=== PATIENT | female | born 1960 | race Caucasian/White ===

== ENCOUNTER 2020-05-27 21:14 | Emergency (ER) | payer OTHER, SELFPAY ==
--- NOTE | ~2020-05-27 | CT_ITS ---
EXAMINATION: CTA brain carotid DATE: 05/27/2020 22:10 CDT INDICATION: Vision loss. TECHNIQUE: Computed tomographic angiography (CTA) of the head was performed without and with 100 mL O mnipaque-350 intravenous contrast. CTA of the neck was performed with intravenous contrast. The dose- length product was 1495.45 mGy-cm. Maximum intensity projection and volume rendered 3D-reconstruction s were created by the technologist on a separate workstation. Automated exposure control and iterativ e reconstruction technique were employed. COMPARISON: None. FINDINGS: HEAD CTA: Normal brain parenchymal volume. No acute intracranial hemorrhage, infarction, mass or mass effect. There is intracranial atherosclerosis. Mild atherosclerotic change of the cavernous distal i nternal carotid arteries without significant stenosis. The A1 and M1 segments are widely patent. Basi lar artery is patent. The anterior, middle and posterior cerebral arteries are unremarkable without a neurysm or vascular malformation. Paranasal sinuses and mastoids are pneumatized. No depressed skull fractures. NECK CTA: Mild calcification of nondilated aortic arch without evidence for aneurysm or dissection. T race atherosclerotic plaque at the origin of the right subclavian artery with minimal stenosis less t balderrama 20%. The common and internal carotid arteries are widely patent. No significant plaque or stenosi s. Right vertebral artery is small with flow directed into the PICA distally. This is normal variant. Left vertebral artery is unremarkable. Mild cervical spondylosis. IMPRESSION: 1: No acute intracranial abnormality. 2: No significant vascular abnormality of the carotid arteries or intracranial circulation. Reviewed, dictated and finalized at location A.
--- NOTE | ~2020-05-27 | XR_ITS ---
EXAMINATION: XR chest 1V portable 05/27/2020 21:59 INDICATION: Vision loss right eye. History of hypertension. PROCEDURE: AP portable chest COMPARISON: No prior studies for comparison. FINDINGS: The lungs are clear. The cardiomediastinal silhouette is within normal limits. There are no pleural effusions. There is no pneumothorax suspected. IMPRESSION: 1: NO ACUTE CARDIOPULMONARY DISEASE. Reviewed, dictated and finalized at location A.
[2020-05-27 21:20] VITALS: BP 173/82; PULSE 93; RESP 18; TEMP 36.6; O2SAT 99
--- NOTE | 2020-05-27 21:25 | ECG_ITS ---
Measurements Intervals [place] Rate: 88 P: 81 LA: 125 QRS: 24 QRSD: 101 T: 47 QT: 384 QTc: 466 Interpretive Statements SINUS RHYTHM NORMAL ECG Electronically Signed On 05-28-2020 7:26:53 CDT by Riley Abdullahi D.O.
[2020-05-27 21:30] VITALS: PULSE 95; RESP 18
[2020-05-27 21:30] LABS: Glucose Point of Care 121 (65-105)
[2020-05-27 21:37] LABS: Basophils Absolute Auto 0.1 K/mm3 (0.0-0.1); Basophils Percent Auto 0.7 % (0.2-1.2); Eosinophils Absolute Auto 0.4 K/mm3 (0-0.3); Eosinophils Percent Auto 3.5 % (0-4.4); Hematocrit 40.5 % (37.0-47.0); Hemoglobin 13.8 g/dL (12.0-15.0); Immature Granulocyte Absolute 0.02 K/mm3 (0.00-0.031); Immature Granulocyte Percent A 0.2 % (0-0.5); Lymphocytes Absolute Auto 3.05 K/mm3 (0.9-3.2); Lymphocytes Percent Auto 30.9 % (18.3-44.2); Mean Corpuscular HGB Conc 34.1 g/dl (32-36); Mean Corpuscular Hemoglobin 32.8 pg (26-34); Mean Corpuscular Volume 96.2 fl (80-100); Mean Platelet Volume 10.8 fl (7.4-10.4); Monocytes Absolute Auto 1.2 K/mm3 (0.1-0.6); Monocytes Percent Auto 11.7 % (2.6-8.5); Neutrophils Absolute Auto 5.2 K/mm3 (1.3-6.7); Platelet Count Result 235 k/mm3 (150-375); Red Blood Count 4.21 M/mm3 (4.2-5.4); Red Cell Distribution Width 13.4 % (11.5-14.5); White Blood Count 9.9 K/mm3 (4.5-10.0)
[2020-05-27 21:46] LABS: INR 0.9; Prothrombin Time 12.2 Seconds (11.1-14.7)
[2020-05-27 21:49] LABS: Anion Gap 8 mmol/L (8-16); Blood Urea Nitrogen 25 mg/dL (7-17); Calcium 9.1 mg/dL (8.4-10.2); Carbon Dioxide 27 mmol/L (22-30); Chloride 103 mmol/L (98-107); Estimated CRCL calculation 50 ml/min; Estimated Glomerular Filt Rate 57; Glucose 107 mg/dL (65-105); Potassium 3.1 mmol/L (3.4-5.0); Sodium 138 mmol/L (137-145)
--- NOTE | 2020-05-27 21:59 | ED.NEUROSD ---
HPI - Neuro Symptoms/Deficit General Chief Complaint: Neuro Symptoms/Deficit Stated Complaint: neuro symptoms onset 1999 Time Seen by Provider: 05/27/20 21:59 History of Present Illness HPI Narrative: 59-year-old female presents to emergency department for right visual field deficits that started at 8 PM tonight. Patient states she walked outside, then walked back inside and noticed the vision changes. Patient states she has never had this in the past before. No history of strokes or TIAs in the past. Has not taken anything for her symptoms far. Patient does have a history of high blood pressure. No chest pain or shortness of breath. Related Data Home Medications Medication Instructions Recorded Confirmed atorvastatin 40 mg tablet 40 mg PO DAILY 08/05/19 03/02/20 calcium carbonate 500 mg calcium 500 mg PO DAILY 03/02/20 03/02/20 (1,250 mg) tablet multivitamin 1 tablet PO DAILY 03/02/20 03/02/20 Allergies Allergy/AdvReac Type Severity Reaction Status Date / Time codeine Allergy Unknown Unknown Verified 03/02/20 09:38 Review of Systems Review of Systems: Narrative: CONSTITUTIONAL: Denies fever, chills, or sweats. EYES: Denies visual changes, redness, or discharge. ENT: Denies rhinorrhea, congestion, sore throat, or otalgia. CARDIOVASCULAR: Denies chest pain, palpitations, or edema. RESPIRATORY: Denies cough or dyspnea. GASTROINTESTINAL: Denies abdominal pain, nausea, vomiting, or diarrhea. GENITOURINARY: Denies dysuria or hematuria. SKIN: Denies rash or itching. MUSCULOSKELETAL: Denies back pain, joint pain, or myalgia. NEUROLOGIC: Denies headache, numbness, dizziness, or weakness. 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 [facility] Social History Social History Smoking status: Heavy tobacco smoker Second hand tobacco smoke exposure: Yes Alcohol intake: never Exam Narrative: Exam Narrative: GENERAL: Well-appearing, well-nourished, and in no acute distress. HEAD: Normocephalic, atraumatic. EYES: PERRLA and EOMI. ENT: Nares clear, no rhinorrhea or epistaxis. Mucous membranes moist. NECK: Supple. CHEST: Clear to auscultation. No respiratory distress. HEART: Regular rate and rhythm. No murmur heard. Normal peripheral pulses. ABDOMEN: Soft, nontender, nondistended, normal active bowel sounds. EXTREMITIES: Normal range of motion. No edema. SKIN: Warm, dry, no rash. NEURO: NIH 2 PSYCH: Normal mood and affect. Course Consultations Consultation #1: [id number] - discussed case with Dr. Benitez, neuro intervention at [facility], ok to transfer [id number] - discussed case with Dr. Verdugo, at [facility] ER, accepts transfer. Vital Signs Vital signs: Vital Signs Temperature 36.6 C 05/27/20 21:20 Pulse Rate 93 05/27/20 21:20 Respiratory Rate 18 05/27/20 21:20 Blood Pressure 173/82 H 05/27/20 21:20 Pulse Oximetry 99 05/27/20 21:20 Temperature 36.6 C 05/27/20 21:20 Pulse Rate 83 05/27/20 22:24 Respiratory Rate 18 05/27/20 22:24 Blood Pressure 175/89 H 05/27/20 22:24 Pulse Oximetry 99 05/27/20 22:24 MDM - Neuro Symptoms/Deficit MDM Narrative Medical decision making narrative: Patient came into the emergency department with new to the top half of her right eye visual field. CT scan of head unremarkable. NIH 2. I discussed the risks and benefits of giving TPA to this patient. Patient declined. [facility] does not have ophthalmology coverage. This patient having changes to her visual field, patient will also need an ophthalmology consult in the near future likely. Patient transferred over to [facility] emergency department for further evaluation by neurology team. Medical Records Attestation: I reviewed the patient's medical records. Lab Data Attestation: I reviewed the patient's lab results. Result diagrams: 05/27/20 21:31 05/27/20 21:31 Labs: Lab Results 05/27/20 05/27/20 08
[2020-05-27 22:01] LABS: Troponin I < 0.012 ng/mL (0.000-0.034)
--- NOTE | 2020-05-27 22:15 | PC.NURSE ---
called lab to add on
[2020-05-27 22:24] VITALS: BP 175/89; PULSE 83; RESP 18; O2SAT 99
[2020-05-27 22:27] LABS: Alanine Aminotransferase 15 U/L (4-35); Albumin Level 3.9 g/dL (3.5-5.1); Alkaline Phosphatase 57 U/L (38-126); Aspartate Amino Transferase 23 U/L (14-36); Bilirubin,Total 0.4 mg/dL (0.2-1.3)
== END 2020-05-27 23:01 | disposition short-term general hospital (02) ==
PROVIDERS: Emergency Medicine Emergency Medical Services; Emergency Provider Emergency Medicine; PCP Family Medicine
DX: I63.9 Cerebral infarction, unspecified (principal); R29.702 NIHSS score 2; F17.210 Nicotine dependence, cigarettes, uncomplicated
CPT/HCPCS: 36415; 70496; 70498; 71045; 80048; 80076; 82948; 84484; 85025; 85610; 85730; 93005; 99285; Q9967

== ENCOUNTER → 2020-08-20 07:35 | Outpatient (CLI) | payer OTHER, SELFPAY ==
--- NOTE | ~2020-08-20 | MM_ITS ---
EXAMINATION: MM screening piero BI w hiram HISTORY: Screening mammogram TECHNIQUE: Craniocaudal and mediolateral oblique 3-D tomosynthesis images were obtained and synthetic 2-D images were generated. CAD analysis was submitted and interpreted. COMPARISON: No prior mammogram is available for comparison at this institution. BREAST PARENCHYMAL COMPOSITION: There are scattered areas of fibroglandular density. FINDINGS: There is no evidence of suspicious mass, calcification, or architectural distortion to sugg est malignancy in either breast. There has been no suspicious interval change. IMPRESSION: 1. No mammographic evidence of malignancy. 2. Recommend routine screening mammography in one year. BI-RADS Category 1: Negative Reviewed, dictated and finalized at location B. ICAL OPERATIONS LEADER
== END ==
PROVIDERS: PCP Family Medicine; Visit Provider Obstetrics & Gynecology Gynecology
DX: Z12.31 Encounter for screening mammogram for malignant neoplasm of breast (principal)
CPT/HCPCS: 77063; 77067

== ENCOUNTER → 2021-08-31 16:30 | Outpatient (CLI) | payer OTHER, SELFPAY ==
--- NOTE | ~2021-08-31 | MM_ITS ---
EXAMINATION: MM screening piero BI w hiram HISTORY: Screening mammogram TECHNIQUE: Craniocaudal and mediolateral oblique 3-D tomosynthesis images were obtained and synthetic 2-D images were generated. CAD analysis was submitted and interpreted. COMPARISON: 08/20/2020 bilateral screening mammogram BREAST PARENCHYMAL COMPOSITION: There are scattered areas of fibroglandular density. FINDINGS: There is a new asymmetric 3.5 x 7.8 mm opacity in the anterior outer mid right breast. Diag nostic right mammogram and targeted right breast ultrasound examination are recommended. Otherwise there is no evidence of suspicious mass, calcification, or architectural distortion to sugg est malignancy in either breast. There has been no other suspicious interval change. IMPRESSION: 1. New 3.5 x 7.8 mm opacity in the anterior outer mid right breast 2. Diagnostic right mammogram and targeted right breast ultrasound examination are recommended. BI-RADS Category 0: Incomplete: Needs additional imaging evaluation. Reviewed, dictated and finalized at location A. LINE MAINTENANCE SUPERVISOR
== END ==
PROVIDERS: Visit Provider Obstetrics & Gynecology Gynecology
DX: Z12.31 Encounter for screening mammogram for malignant neoplasm of breast (principal); R92.8 Other abnormal and inconclusive findings on diagnostic imaging of breast
CPT/HCPCS: 77063; 77067

== ENCOUNTER → 2021-09-17 07:57 | Outpatient (CLI) | payer OTHER, SELFPAY ==
--- NOTE | ~2021-09-17 | MMUS_ITS ---
EXAMINATION: MM diagnostic piero RT w hiram, US breast RT limited HISTORY: Follow-up right breast mass TECHNIQUE: Additional 3-D tomosynthesis images of the right breast were performed and synthetic 2-D i mages were generated. CAD analysis was submitted and interpreted. High resolution right breast ultras ound was performed. COMPARISON: None BREAST PARENCHYMAL COMPOSITION: Breast composed of scattered areas of fibroglandular density. FINDINGS: MAMMOGRAPHIC FINDINGS: There is a mass in the mid outer aspect of the right breast, anterior-mid depth. There are no suspici ous calcifications or architectural distortion. ULTRASOUND: Limited right breast ultrasound: At 9:00, 3 cm from the nipple there is a 3 mm cyst. At 9:00, 2 cm fr om the nipple there is a 5 mm cyst. At 9:00, 1 cm from the nipple there is a 2 mm cyst. The largest c yst corresponds to the mammographic finding. No suspicious masses to suggest malignancy. IMPRESSION: 1. No evidence for malignancy in the right breast. Benign findings. 2. Routine yearly screening mammogram and regular clinical breast examination are recommended. BI-RADS Category 2: Benign finding(s). Reviewed, dictated and finalized at location A. OYEE COMMUNICATIONS SPECIALIST IMPRESSION: 1. No evidence for malignancy in the right breast. Benign findings. 2. Routine yearly screening mammogram and regular clinical breast examination a re recommended. BI-RADS Category 2: Benign finding(s).
== END ==
PROVIDERS: PCP Family Medicine; Visit Provider Obstetrics & Gynecology Gynecology
DX: R92.8 Other abnormal and inconclusive findings on diagnostic imaging of breast (principal)
CPT/HCPCS: 76642; 77061; 77065; G0279

== ENCOUNTER 2021-11-12 09:51 | Outpatient (CLI) | payer OTHER, SELFPAY ==
--- NOTE | ~2021-11-12 | CT_ITS ---
EXAMINATION:CT lung screening DATE: 11/12/2021 10:15 INDICATION: Encounter for screening for malignant neoplasm of respiratory organs. Current smoker with 40 pack year history. TECHNIQUE: Computed tomography (CT) of the chest was performed without intravenous contrast. Automate d exposure control and iterative reconstruction technique were employed. The dose-length product (DLP ) was 68.81 mGy-cm. COMPARISON: CTA neck 05/27/2020 FINDINGS: There is a 4 mm nodule in right upper lobe. No pleural effusion. The heart size is normal. There are coronary artery calcifications. No pericardial effusion. There is a 1.9 cm cyst in the live r. There is a 4 mm stone in right kidney. There is mild thoracic spondylosis. IMPRESSION: 1. Lung-RADS category 2: Benign appearance or behavior. Continue annual screening with noncontrast lo w-dose chest CT in 12 months. Reviewed, dictated and finalized at location E. NICAL SYSTEMS ARCHITECT IMPRESSION: 1. Lung-RADS category 2: Benign appearance or behavior. Continue annual screeni ng with noncontrast low-dose chest CT in 12 months.
== END 2021-11-12 09:52 | disposition home or self-care (01) ==
PROVIDERS: PCP Family Medicine; Visit Provider Family Medicine
DX: Z12.2 Encounter for screening for malignant neoplasm of respiratory organs (principal); Z87.891 Personal history of nicotine dependence
CPT/HCPCS: 71271

== ENCOUNTER 2022-12-02 16:37 | Outpatient (CLI) | payer OTHER, SELFPAY ==
--- NOTE | ~2022-12-02 | CT_ITS ---
EXAMINATION: CT lung screening DATE: 12/02/2022 16:58 INDICATION: Personal history of nicotine dependence, current smoker with 41 pack year history TECHNIQUE: Computed tomography (CT) of the chest was performed without intravenous contrast. The dose -length product (DLP) was 92.63 mGy-cm. Automated exposure control and iterative reconstruction techn Cherrishue were employed. COMPARISON: 11/12/2021 FINDINGS: There is mild emphysema. There is a stable 4 mm nodule of the right upper lobe. No pleural effusion or pneumothorax. The lungs are free of acute opacities. No pathologically enlarged thoracic lymph nodes are identified. The heart size is normal. Calcified coronary artery atherosclerosis is no junior. There is mild thoracic spondylosis. There is a 1.8 cm cyst of the liver. A 4 mm nonobstructing s tone is noted in the right kidney. IMPRESSION: 1. Lung-RADS category 2: Benign appearance or behavior. Continue annual screening with noncontrast lo w-dose chest CT in 12 months. Reviewed, dictated and finalized at location F. UNTS PAYABLE TECHNICIAN IMPRESSION: 1. Lung-RADS category 2: Benign appearance or behavior. Continue annual screeni ng with noncontrast low-dose chest CT in 12 months.
== END 2022-12-02 16:38 | disposition home or self-care (01) ==
PROVIDERS: PCP Family Medicine; Visit Provider Family Medicine
DX: Z12.2 Encounter for screening for malignant neoplasm of respiratory organs (principal); F17.210 Nicotine dependence, cigarettes, uncomplicated
CPT/HCPCS: 71271

== ENCOUNTER → 2022-12-03 08:40 | Outpatient (CLI) | payer OTHER, SELFPAY ==
--- NOTE | ~2022-12-03 | MM_ITS ---
EXAMINATION: MM screening piero BI w hiram HISTORY: Screening mammogram TECHNIQUE: Craniocaudal and mediolateral oblique 3-D tomosynthesis images were obtained and synthetic 2-D images were generated. CAD analysis was submitted and interpreted. COMPARISON: 09/17/2021, 08/31/2021, 08/20/2020 BREAST PARENCHYMAL COMPOSITION: There are scattered areas of fibroglandular density. FINDINGS: There is a stable cyst in the outer right breast. No suspicious mass, calcification, or arc hitectural distortion are identified in either breast to suggest malignancy. There has been no suspic ious interval change. IMPRESSION: 1. No mammographic evidence of malignancy. 2. Recommend routine screening mammography in one year. BI-RADS Category 2: Benign finding(s). Reviewed, dictated and finalized at location A. GY CONSERVATION ENGINEER
== END ==
PROVIDERS: PCP Family Medicine; Visit Provider Obstetrics & Gynecology Gynecology
DX: Z12.31 Encounter for screening mammogram for malignant neoplasm of breast (principal)
CPT/HCPCS: 77063; 77067

== ENCOUNTER 2023-10-09 11:54 | Outpatient (CLI) | payer OTHER, SELFPAY ==
--- NOTE | ~2023-10-09 | XR_ITS ---
Right Hand Technique: PA, oblique, and lateral views were obtained. Clinical History: Pain Findings: No acute fracture or dislocation is seen. Osseous alignment is anatomic. Joint spaces are p reserved. Soft tissues are unremarkable. Impression: Unremarkable right hand. Reviewed, dictated and finalized at location M. RY MANAGER Impression: Unremarkable right hand.
== END 2023-10-09 11:55 | disposition home or self-care (01) ==
PROVIDERS: PCP Family Medicine; Visit Provider Family Medicine
DX: M79.641 Pain in right hand (principal); Z91.81 History of falling
CPT/HCPCS: 73130

== ENCOUNTER 2024-04-30 13:09 | Outpatient (CLI) | payer OTHER, SELFPAY ==
--- NOTE | ~2024-04-30 | MM_ITS ---
EXAMINATION: MM screening piero BI w hiram HISTORY: Screening TECHNIQUE: Craniocaudal and mediolateral oblique 3-D tomosynthesis images were obtained and synthetic 2-D images were generated. CAD analysis was submitted and interpreted. COMPARISON: Comparison to multiple prior studies sequentially, with oldest reviewed study dated 08/02. BREAST PARENCHYMAL COMPOSITION: Not dense: There are scattered areas of fibroglandular density. FINDINGS: There is no evidence of suspicious mass, calcification, or architectural distortion to sugg est malignancy in either breast. There has been no suspicious interval change. IMPRESSION: 1. No mammographic evidence of malignancy. 2. Recommend routine screening mammography in one year. BI-RADS Category 1: Negative. Reviewed, dictated and finalized at location B.
== END 2024-04-30 13:10 | disposition home or self-care (01) ==
PROVIDERS: PCP Family Medicine; Visit Provider Nurse Practitioner
DX: Z12.31 Encounter for screening mammogram for malignant neoplasm of breast (principal)
CPT/HCPCS: 77063; 77067

== ENCOUNTER 2024-12-10 14:12 | Outpatient (CLI) | payer OTHER, SELFPAY ==
--- NOTE | ~2024-12-10 | CT_ITS ---
CT Scan of the Chest without Contrast: Clinical Indication: Lung cancer screening, nicotine dependence Technique: Contiguous sections were acquired throughout the chest without intravenous contrast. Dose reduction technique was used on this scan by utilizing automated exposure control and iterative recon struction technique. The dose-length product (DLP) was 76.02 mGy-cm. COMPARISON: 12/02/2022 Findings: There is no evidence of any significant mediastinal, hilar or axillary lymphadenopathy. Coronary william ry calcifications present. There is no evidence of pleural or pericardial effusion. Stable 4 mm nodule in the central right lung apex (axial image 32). Images through the upper abdomen reveal no abnormalities. Impression: Lung RADS 2: Benign appearance. 12 month follow-up screening CT advised. Reviewed, dictated and finalized at location . Impression: Lung RADS 2: Benign appearance. 12 month follow-up screening CT advised.
--- OUTSIDE RECORDS SUMMARY | 2024-12-10 16:04 | XMS_ITS | Clinical Summary ---
Author Organization [facility] Care Team Providers Care Artificial Limb Maker Name Role Phone Unavailable Primary Care Provider Unavailabl e Social History Tobacco Use Types Packs/Day Years Used Date Smoking Tobacco: Never Assessed Comments Unknown Sex and Gender Information Value Date Recorded Sex Assigned at Not on file Legal Sex Female 9:43 AM CDT Gender Identity Not on file Sexual Orientation Not on file Plan of Treatment Health Maintenance Due Date Last Done Comments Hepatitis C Virus (HCV) Screening 1960 TdaP Immunization 1960 Pap Smear 1981 Cervical Cancer Screening (CCS) 1990 HPV/Cotest 1990 Colonoscopy 2005 Colorectal Cancer Screening 2005 Cologuard 2010 Immunochemical Fecal Occult Blood 2010 Mammogram 2010 Pneumococcal Immunization (5 0+ years) (1 of 1 - PCV) 2010 Zoster Immunization (1 of 2) 2010 Influenza Immunization (#1) 2024 SARS-COV-2 Immunization (2023- season) 2024 Respiratory Syncytial Virus (RSV) Immunization (Adult) (1 - 1-dose 75+ series) 2035 Hepatitis B Immunization Aged Out No longer eligible based on patient's age to complete this topic Meningococcal Immunization (ACWY) Aged Out No longer eligible based on patient's age to complete this topic Pneumococcal Immunization Combined Aged Out No longer eligible based on patient's age to complete this topic Rotavirus Immunization Aged Out No lo nger eligible based on patient's age to complete this topic
--- OUTSIDE RECORDS SUMMARY | 2024-12-10 16:04 | XMS_ITS | Clinical Summary ---
Author Organization [employer] [facility] Address [address] [place] [address] Care Team Providers Care Manager Library Name Role Phone Unavailable Primary Care Provider Unavailabl e Allergies Active Allergy Reactions Criticality Noted Date Comments Codeine Nausea and Vomiting Low 05/27/2020 Social History Tobacco Use Types Packs/Day Years Used Date Smoking Tobacco: Never Assessed Comments Unknown Sex and Gender Information Value Date Recorded Sex Assigned at Not on file Legal Sex Female 12:22 PM CDT Gender Identity Not on file Sexual Orientation Not on file Plan of Treatment Health Maintenance Due Date Last Done Comments DTAP/TDAP/TD VACCINES (1 - Tdap) 1979 CERVICAL CANCER SCREENING 1990 BREAST CANCER SCREENING 2000 COLORECTAL SCREENING 2005 Colorectal Cancer Screening 2005 FIT-DNA Q 3 years 2005 FIT/FOBT Q 1 year 2005 Flex Sig/CT Colonography Q 5 years 2005 ZOSTER VACCINE (1 of 2) 2010 INFLUENZA VACCINE (#1) 2024 RSV VACCINE (60+ or ) (1 - 1-dose 75+ series) 2035 PNEUMOCOCCAL VACCINE 0-49 YEARS Aged Out No longer eligible based on patient's age to complete this topic Insurance Orchestrate BENEFIT ADMIN Dipti
--- OUTSIDE RECORDS SUMMARY | 2024-12-10 16:04 | XMS_ITS | Encounter Summary ---
Author Organization [facility] Address [address] [place] [address] Care Team Providers Care Geophysical Engineer Name Role Phone Freddy Bolivar MD Primary Care Provider Encounter Details Date Type Department Care Team (Late st Contact Info) Description 05/28/2020 Ophth Exam [facility] [address] [place] [address] Christoph Nur MD [address] [place], [place] [id number] Social History Tobacco Use Types Packs/Day Years Used Date Smoking Tobacco: Every Day Cigarettes Smokeless Tobacco: Never Alcohol Use Standard Drinks/Week Comments Yes 0 (1 standard drink = 0.6 oz pur e alcohol) rarely Sex and Gender Information Value Date Recorded Sex Assigned at Not on file Gender Identity Not on file Sexual Orientation Not on file documented as of this encounter Functional Status Functional Status Response Date of Assess ment Is person deaf or have serious hearing difficult y? No 05/28/2020 Is person blind or have serious difficulty seein g? No 05/28/2020 Does person have serious dif ficulty walking/climbing stairs? No 05/28/2020 Does person have difficulty dressing/bathing? No 05/28/2020 Does person have difficulty doing errands alone? No 05/28/2020 Cognitive Status Response Date of Assessm ent Does person have difficulty concentrating/remembering/making decisions? No 05/28/2020 documented as of this encounter Plan of Treatment Not on file documented as of this encounter Visit Diagnoses Not on filedocumented in this encounter Care Teams Geophysical Engineer Relationship Specialty Start Date End Date Freddy Bolivar MD [address] [place] [address] PCP - General Family Medicine 06/01/20 documented as of this encounter
--- OUTSIDE RECORDS SUMMARY | 2024-12-10 16:04 | XMS_ITS | Patient Health Summary ---
Author Organization [facility] Address [address] [place] [address] Care Team Providers Care Nurse Anesthesia Program Director Name Role Phone Freddy Bolivar MD Primary Care Provider Note from [facility],non-owned Affiliates and Associated Physician Practices is amultiple site organization consisting of ambulatory clinics and hospital sitesin [place], [place], [place] and [place]. This disclosure is being madepursuant to the Care Everywhere program and may not contain all information available regarding this patient. Last updated 18.[facility] Allergies * Codeine(Other) Medications * Be aware that medications may not be up to date on this document. Alwaysverify current medications with the patient. * atorvastatin (LIPITOR) 40 MG tablet Take 40 mg by mouth at bedtime * lisinopril-hydroCHLOROthiazide (PRINZIDE; ZESTORETIC) 20-12.5 MG tablet Take 1 tablet by mouth once daily * aspirin (ASPIRIN) 81 MG chew tablet(Started 05/28/2020) Take 1 tablet by mouth once daily 3 refills by 05/28/2021 Active Problems Problem Noted Date Diagnosed Date Vision changes 05/27/2020 Social History Tobacco Use Types Packs/Day Years Used Date Smoking Tobacco: Every Day Cigarettes Smokeless Tobacco: Never Alcohol Use Standard Drinks/Week Comments Yes 0 (1 standard drink = 0.6 oz pur e alcohol) rarely Sex and Gender Information Value Date Recorded Sex Assigned at Not on file Gender Identity Not on file Sexual Orientation Not on file Last Filed Vital Signs Vital Sign Reading Time Taken Comments Blood Pressure 158/84 05/28/2020 2:37 PM CDT Pulse 81 05/28/2020 2:37 PM CDT Temperature 36.4 C (97.6 F) 05/28/2020 3:04 PM CDT Respiratory Rate 18 05/28/2020 2:37 PM CDT Oxygen Saturation 97% 05/28/2020 2:37 PM CDT Inhaled Oxygen Concentration - - Weight 67.6 kg (149 lb) 05/28/2020 1:19 AM CDT Height 167.6 cm (5' 6 ) 05/28/2020 1:19 AM CDT Body Mass Index 24.05 05/28/2020 1:19 AM CDT Procedures * OPH OCT TEST [facility](Performed 06/01/2020) Performed for Branch retinal artery occlusion of right eye * OPH VISUAL FIELD TEST [facility](Performed 06/01/2020) Performed for Optic nerve swelling * OPH OCT TEST [facility](Performed 06/01/2020) Performed for Optic nerve swelling * CARDIAC EKG ORDER(Performed 05/28/2020) * C-REACTIVE PROTEIN(Performed 05/28/2020) * ERYTHROCYTE SEDIMENTATION RATE(Performed 05/28/2020) * LIPID PROFILE(Performed 05/28/2020) * URINE DRUG SCREEN IMMUNOASSAY(Performed 05/28/2020) * URINALYSIS NO MICROSCOPIC NO CULTURE(Performed 05/28/2020) * MRI BRAIN WO CONTRAST(Performed 05/28/2020) Performed for Vision changes * EKG 12-LEAD(Performed 05/28/2020) Performed for Vision changes * HEMOGLOBIN A1C(Performed 05/28/2020) * TROPONIN I(Performed 05/28/2020) * TROPONIN I(Performed 05/28/2020) * PT-INR [facility](Performed 05/28/2020) * CBC W AUTO DIFFERENTIAL(Performed 05/28/2020) * TYPE + SCREEN PANEL(Performed 05/28/2020) * PT EVAL AND TREAT(Performed 05/28/2020) * OT EVAL AND TREAT(Performed 05/28/2020) * CT ANGIO BRAIN AND NECK(Performed 05/27/2020) Performed for Vision changes * CREATININE - POCT INTERFACED(Performed 05/27/2020) * INR WHOLE BLOOD - POINT OF CARE (IP) STROKE(Performed 05/27/2020) * CT BRAIN STROKE(Performed 05/27/2020) Performed for Vision changes Results * OCT (06/01/2020 11:36 AM CDT) Anatomical Region Laterality Modality Other 06/01/2020 11:3 6 AM CDT Christoph Nur MD OPHTHALMOLOGY SERVIC ES ORDERABLES * Visual Winn (06/01/2020 8:49 AM CDT) Anatomical Region Laterality Modality Other 06/01/2020 8:49 AM CDT Christoph Nur MD OPHTHALMOLOGY SERVIC ES ORDERABLES * OCT (06/01/2020 8:00 AM CDT) Anatomical Region Laterality Modality Other 06/01/2020 8:00 AM CDT Christoph Nur MD OPHTHALMOLOGY SERVIC ES ORDERABLES * CARDIAC EKG ORDER (05/28/2020 7:47 PM CDT) Narrative 05/28/2020 7:47 PM CDT Ordered by an unspecified provider. Scanned Document CARDIAC SERVICES ORD ERABLES * C-REACTIVE PROTEIN (05/28/2020 1:15 PM CDT) C-Reactive Protein <0.5 <=0.5 mg/dL 05/28/2020 1:55 PM CDT [facility] Blood BLOOD SPECIMEN / Unknown Venipuncture / Unknown 05/28/2020 1:15 PM CDT 05/28/2020 1:20 PM CDT Chris Larkin MD LAB - CHEMISTRY OR DERABLES Performing Organization Address [facility]/ZIP Co de Phone Number [address] [phone] [phone] * ERYTHROCYTE SEDIMENTATION RATE (05/28/2020 1:15 PM CDT) Erythrocyte Sedimentation Rate Westergren 6 0 - 30 MM/HR 05/28/2020 1:27 PM CDT [facility] Blood BLOOD SPECIMEN / Unknown Venipuncture / Unknown 05/28/2020 1:15 PM CDT 05/28/2020 1:20 PM CDT Chris Larkin MD LAB - HEMATOLOGY O RDERABLES [address] [address] [phone] * LIPID PROFILE (05/28/2020 5:58 AM CDT) Cholesterol Total 127 <200 mg/dL 05/28/2020 6:28 AM CDT [facility] HDL 51 >40 mg/dL 05/28/2020 6:28 AM CDT [facility] Comment: ATP III Classification of HDL Cholesterol: <40 mg/dL: Considered a major risk factor. >60 mg/dL: Considered a negative risk factor. LDL Calculated 57 <100 mg/dL 05/28/2020 6:28 AM T [facility] Comment: ATP III Classification of LDL Cholesterol: <100 mg/dL: Optimal 100 - 129 mg/dL: Near Optimal/Above Optimal 130 - 159 mg/dL: Borderline High 160 - 189 mg/dL: High >190 mg/dL: Very High Triglycerides 97 <150 mg/dL 05/28/2020 6:28 AM T [facility] Comment: ATP III Classification of Triglycerides: <150 mg/dL: Normal 150 - 199 mg/dL: Borderline High 200 - 400 mg/dL: High >500 mg/dL: Very High Blood BLOOD SPECIMEN / Unknown Venipuncture / Unknown 05/28/2020 5:58 AM CDT 05/28/2020 6:01 AM CDT Aura Andrade MD LAB - CHEMISTRY SHERITA SCHUSTER [address] [id number] [phone] * (ABNORMAL) URINALYSIS NO MICROSCOPIC NO CULTURE (05/28/2020 3:39 AM CDT) Color UA Straw Straw, Yellow, Colorless 05/28/2020 3:53 AM T [facility] Clarity UA Clear Clear, Slt Cloudy 05/28/2020 3:53 AM T [facility] Specific [place] UA 1.038(H) 1.005 - 1.030 05/28/2020 3:53 AM T [facility] pH UA 7.0 5.0 - 8.0 pH 05/28/2020 3:53 AM CDT [facility] Protein UA Negative Negative mg/dL 05/28/2020 3:53 AM T [facility] Glucose UA Negative Negative mg/dL 05/28/2020 3:53 AM T [facility] Ketone UA Negative Negative mg/dL 05/28/2020 3:53 AM T [facility] Bilirubin UA Negative Negative mg/dL 05/28/2020 3:53 AM T [facility] Blood UA 1+(A) Negative 05/28/2020 3:53 AM T [facility] Nitrite UA Negative Negative 05/28/2020 3:53 AM T [facility] Leukocyte Esterase Negative Negative 05/28/2020 3:53 AM [facility] Urobilinogen UA Negative Negative mg/dL 05/28/2020 3:53 AM [facility] Urine URINE SPECIMEN OBTAINED BY CLEAN CATCH PROCEDURE / Unknown Collection / Unknown 05/28/2020 3:39 AM CDT 05/28/2020 3:43 AM CDT [facility] - 05/28/2020 3:53 AM CDT Aura Andrade MD LAB - URINALYSIS ORD ERABLES [address] [address] [phone] * DRUG SCREEN TOX URINE PANEL (05/28/2020 3:39 AM CDT) [facility] Amphetamines Screen Urine Negative Negative: < 1000 ng/mL 05/28/2020 4:10 AM [facility] Barbiturates Screen Urine Negative Negative: < 200 ng/mL 05/28/2020 4:10 AM [facility] Benzodiazepine Screen Urine Negative Negative: < 200 ng/mL 05/28/2020 4:10 AM [facility] Opiates Urine Negative Negative: < 300 ng/mL 05/28/2020 4:10 AM [facility] Cocaine Metabolites Urine Negative Negative: < 300 ng/mL 05/28/2020 4:10 AM [facility] Phencyclidine Screen Urine Negative Negative: < 25 ng/ml 05/28/2020 4:10 AM CDT [facility] Cannabinoids Screen Urine Negative Negative: <50 ng/mL 05/28/2020 4:10 AM CDT [facility] Methadone Screen Urine Negative Negative: < 300 ng/mL 05/28/2020 4:10 AM CDT [facility] Fentanyl Screen Urine Negative Negative: <1.0 ng/mL 05/28/2020 4:10 AM CDT [facility] Urine URINE / Unknown Collection / Unknown 05/28/2020 3:39 AM CDT 05/28/2020 3:43 AM CDT Narrative [facility] - 05/28/2020 4:10 AM CDT The Urine Toxicology Screening Panel does not screen for Propoxyphene, Meprobamate, Carisoprodol, Trazodone, [id number] medications and/or volatiles (Acetone, Isopropanol, Methanol or Ethylene Glycol). Ethanol, Salicylate, Acetaminophen, Tricyclic Antidepressants and several therapeutic drugs may be individually assayed in serum or plasma specimen. Toxicology testing by the [facility] is an aid to medical diagnosis and treatment of patients. No documented chain of custody was maintained. Results are intended to be used for clinical purposes only. Aura Andrade MD LAB - URINE CHEMISTR Y ORDERABLES [address] [address], [facility] [phone] * MRI BRAIN NON CONTRAST (05/28/2020 2:17 AM CDT) Anatomical Region Laterality Modality Head Magnetic Resonan ce 05/28/2020 7:02 AM CDT Impressions 05/28/2020 9:35 AM CDT IMPRESSION: No evidence of acute ischemic infarction. Dictated by Layne Moreno MD (residential direct support professional). I, Dr. ROSSANA CALLAWAY have personally reviewed and interpreted this examination/study. This report was electronically signed by ROSSANA CALLAWAY on 05/28/2020 9:35 AM . Narrative 05/28/2020 9:35 AM CDT MRI BRAIN WITHOUT CONTRAST CLINICAL INFORMATION: Bilateral visual field deficits TECHNIQUE: MRI of the brain was performed without intravenous contrast according to standard protocol. COMPARISON: CT brain and CT Angio Head Neck from 05/27/2020 FINDINGS: There is no infarction or hemorrhage. There is no intracranial mass or mass effect. There is no hydrocephalus or extra-axial fluid collection. Scattered areas of T2 FLAIR hyperintensity in the periventricular white matter and beyond are nonspecific but may represent sequela of chronic small vessel ischemic disease. The sella and posterior fossa structures are within normal limits. Flow voids of major intracranial vessels are noted. The paranasal sinuses and mastoid air cells are clear. Procedure Note Rossana Callaway MD - 05/28/2020 MRI BRAIN WITHOUT CONTRAST CLINICAL INFORMATION: Bilateral visual field deficits TECHNIQUE: MRI of the brain was performed without intravenous contrast according to standard protocol. COMPARISON: CT brain and CT Angio Head Neck from 05/27/2020 FINDINGS: There is no infarction or hemorrhage. There is no intracranial mass or mass effect. There is no hydrocephalus or extra-axial fluid collection. Scattered areas of T2 FLAIR hyperintensity in the periventricular white matter and beyond are nonspecific but may represent sequela of chronic small vessel ischemic disease. The sella and posterior fossa structures are within normal limits. Flow voids of major intracranial vessels are noted. The paranasal sinuses and mastoid air cells are clear. IMPRESSION: No evidence of acute ischemic infarction. Dictated by Layne Moreno MD (residential direct support professional). I, Dr. ROSSANA CALLAWAY have personally reviewed and interpreted this examination/study. This report was electronically signed by ROSSANA CALLAWAY on 05/28/2020 9:35AM . Aura Andrade MD MR ORDERABLES * EKG 12-LEAD (05/28/2020 12:35 AM CDT) Ventricular Rate 99 BPM [facility] MUSE Atrial Rate 99 BPM [facility] MUSE P-R Interval 126 ms [facility] MUSE QRS Duration ms 88 ms [facility] MUSE Q-T Interval ms 392 ms [facility] MUSE QTC Calculation (Bezet) 503 ms SL MUSE Calculated P [place] 77 degrees SL MUSE Calculated R [place] 15 degrees [facility] MUSE Calculated T [place] 45 degrees [facility] MUSE Interpretation EKG NORMAL SINUS RHYTHM PROLONGED QT ABNORMAL ECG NO PREVIOUS ECGS AVAILABLE Confirmed by Marcello Marquez ([id number]) on 07/06/2020 9:00:56 AM [facility] MUSE 05/28/2020 12:3 5 AM CDT 07/06/2020 9:00 AM CDT Krish Stiles MD ECG ORDERABLES Performing Organization Address City/[facility]/ZIP Co de Phone Number [facility] MUSE * PT-INR [facility] (05/28/2020 12:05 AM CDT) PT 12.2 12.1 - 14.8 Seconds 05/28/2020 12:25 AM CDT [facility] INR 0.9 See Comment 05/28/2020 12:25 AM CDT [facility] Comment:The suggested therap eutic range for standard coumadin (warfarin) therapy is an INR of 2.0-3.0. For high-risk patients (Mechanical Mitral Valve Prosthesis, etc.), the suggested prophylactic therapeutic range is an INR of 2.5-3.5. Blood BLOOD SPECIMEN / Unknown Venipuncture / Unknown 05/28/2020 12:05 AM CDT 05/28/2020 12:08 AM CDT Narrative [facility] - 05/28/2020 12:25 AM CDT QRY Krish Stiles MD LAB - COAGULATION OR DERABLES Performing Organization Address [facility]/ZIP Co de Phone Number [address], [facility] [phone] * TROPONIN I (05/28/2020 12:05 AM CDT) Only the most recent of2 resultswithin the time period is included. Troponin I <0.010 <0.032 ng/mL 05/28/2020 12:36 AM CDT [facility] Blood BLOOD SPECIMEN / Unknown Venipuncture / Unknown 05/28/2020 12:05 AM CDT 05/28/2020 12:08 AM CDT Aura Andrade MD LAB - CHEMISTRY SHERITA SCHUSTER Performing Organization Address City/[facility]/ZIP Co de Phone Number [address] [address] [phone] * HEMOGLOBIN A1C (05/28/2020 12:05 AM CDT) Hemoglobin A1c 5.6 4.4 - 6.3 % 05/29/2020 9:45 AM CDT [facility] Estimated Average Glucose 114 mg/dL 05/29/2020 9:45 AM CDT [facility] Comment: HbA1c Interpretation: Treatment target values recommended by ADA and other clinical organizations should be used to evaluate metabolic control in patients. Treatment Target Values: Normal : < 5.7% Pre-diabetes: 5.7-6.4% Diabetes: Equal to or greater than 6.5% Reference: [place] [employer] Standards of Care in Diabetes -2014 In patients 70 years and older consider HbA1c target range of 7.0-7.5% Reference: Diabetes Mellitus in Older People: Position Statement on behalf of the International Association of Gerontology and Geriatrics (IAGG), the Diabetes Working Alliance Party for Older People (EDWPOP), and the International Task Force of Experts in Diabetes. Marco Antonio Cordero et al. J [place] [employer]. 2012 Test results diagnostic of diabetes should be repeated for confirmation. The Sebia Capillary 2 assay for the measurement of HbA1c is a National Glycohemoglobin Standardization Program (NGSP)certified method. Blood BLOOD SPECIMEN / Unknown Lab Venipuncture / Unknown 05/28/2020 12:05 AM CDT 05/28/2020 12:28 PM CDT Aura Andrade MD LAB - CHEMISTRY SHERITA SCHUSTER [facility] Organization Address City/State/[facility] Co de Phone Number [facility] [address] [place] [phone] [phone] * (ABNORMAL) CBC W AUTO DIFFERENTIAL (05/28/2020 12:05 AM CDT) Pathologist [facility] WBC 11.6(H) 3.5 - 10.5 10 3/uL 05/28/2020 12:16 AM CDT [facility] RBC 4.29 3.90 - 5.00 10 6/uL 05/28/2020 12:16 AM CDT [facility] Hemoglobin 14.1 12.0 - 15.5 g/dL 05/28/2020 12:16 AM [facility] Hematocrit 41.1 35.0 - 45.0 % 05/28/2020 12:16 AM [facility] MCV 95.8 81.0 - 97.0 fL 05/28/2020 12:16 AM [facility] MCH 32.9 28.0 - 34.0 pg 05/28/2020 12:16 AM [facility] MCHC 34.3 32.0 - 36.0 g/dL 05/28/2020 12:16 AM [facility] Platelet Count 228 150 - 400 10 3/uL 05/28/2020 12:16 AM [facility] RDW-SD 47.5 36.0 - 50.0 fL 05/28/2020 12:16 AM [facility] RDW-CV 13.5 11.2 - 14.8 % 05/28/2020 12:16 AM [facility] MPV 10.8 9.3 - 12.8 fL 05/28/2020 12:16 AM [facility] nRBC Absolute 0.00 0 10 3/uL 05/28/2020 12:16 AM [facility] nRBC Auto 0.0 0 /100 WBC 05/28/2020 12:16 AM [facility] Neutrophils % 70.8(H) 35.0 - 70.0 % 05/28/2020 12:16 AM [facility] Lymphocytes % 18.7(L) 19.7 - 55.1 % 05/28/2020 12:16 AM [facility] Monocytes % 7.9 3.0 - 15.0 % 05/28/2020 12:16 AM [facility] Eosinophils % 1.7 0.0 - 6.0 % 05/28/2020 12:16 AM [facility] Basophil % 0.6 0.0 - 1.5 % 05/28/2020 12:16 AM [facility] Neutrophils Absolute 8.2(H) 1.6 - 7.0 10 3/uL 05/28/2020 12:16 AM [facility] Lymphocyte Absolute 2.2 0.8 - 2.9 10 3/uL 05/28/2020 12:16 AM CDT [facility] Monocytes Absolute 0.91(H) 0.14 - 0.66 10 3/uL 05/28/2020 12:16 AM CDT [facility] Eosinophils Absolute 0.20 0.00 - 0.45 10 3/uL 05/28/2020 12:16 AM CDT [facility] Basophils Absolute 0.07(H) 0.00 - 0.06 10 3/uL 05/28/2020 12:16 AM CDT [facility] Immature Granulocytes % 0.3 0.0 - 1.0 % 05/28/2020 12:16 AM CDT [facility] Blood BLOOD SPECIMEN / Unknown Venipuncture / Unknown 05/28/2020 12:05 AM CDT 05/28/2020 12:08 AM CDT Krish Stiles MD LAB - HEMATOLOGY ORD ERABLES Performing Organization Address City/[facility]/ZIP Co de Phone Number [address] [address] [phone] * TYPE + SCREEN PANEL (05/28/2020 12:04 AM CDT) Antibody Screen NEG 0 1:09 AM CDT [facility] B[facility]OD [facility] LAB ABO Rh A POS 05/28/2020 1:09 AM CDT [facility] Blood Bank BLOOD SPECIMEN / Unknown Venipuncture / Unknown 05/28/2020 12:04 AM CDT 05/28/2020 12:12 AM CDT Krish Stiles MD LAB - BLOOD BANK ORD ERABLES [facility] [address] [place] [phone], [place] * CT ANGIO BRAIN AND NECK (05/27/2020 11:53 PM CDT) Anatomical Region Laterality Modality Head Computed Tomogra phy 05/28/2020 7:31 AM CDT Impressions 05/28/2020 7:38 AM CDT IMPRESSION: 1. No acute intracranial hemorrhage. 2. No large arterial occlusions or significant stenoses identified in the head or neck. This report was electronically signed by TOBIN MARTINEZ M.D. on 05/28/2020 7:38 AM . Narrative 05/28/2020 7:38 AM CDT EXAMINATION: 1. Computed tomographic (CT) angiography of the head without and with contrast 2. CT angiography of the neck with contrast HISTORY: Code Stroke TECHNIQUE: CT of the head was performed without contrast according to standard protocol. Then CT angiography of the head and neck was obtained after the uneventful administration of 75 mL Isovue-370 intravenous contrast. Three dimensional postprocessing was performed by the technologist and sent to the workstation for review. FINDINGS: No prior study is available for comparison at the time of this dictation. Non-angiographic findings: No acute intra- or extra-axial fluid collections are identified. The ventricles are of normal size, shape, and morphology. The basilar cisterns are patent. No mass effect or midline shift is seen. The lacey-white matter differentiation is normal. The visualized portions of the orbits, paranasal sinuses, and mastoids appear normal. No acute fracture is identified. No soft tissue abnormalities are identified in the neck. Mild degenerative disc and joint disease is noted in the cervical spine. Angiographic findings: Neck: There is atherosclerotic disease of the aortic arch. The configuration of the brachiocephalic vessels is typical. The innominate artery and both subclavian arteries appear normal. The right common and internal carotid arteries as well as the right carotid bifurcation appear patent. The left common and internal carotid arteries as well as the left carotid bifurcation appear normal. The cervical vertebral arteries are patent. Head: The distal internal carotid arteries are patent. The anterior and middle cerebral arteries are patent. The distal vertebral arteries are patent. The basilar artery and posterior cerebral arteries are patent. No aneurysms, vascular occlusions, or intracranial stenoses are identified. Procedure Note Tobin Martinez MD - 05/28/2020 EXAMINATION: 1. Computed tomographic (CT) angiography of the head without and with contrast 2. CT angiography of the neck with contrast HISTORY: Code Stroke TECHNIQUE: CT of the head was performed without contrast according to standard protocol. Then CT angiography of the head and neck was obtained after the uneventful administration of 75 mL Isovue-370 intravenous contrast. Three dimensional postprocessing was performed by the technologist and sent to the workstation for review. FINDINGS: No prior study is available for comparison at the time of this dictation. Non-angiographic findings: No acute intra- or extra-axial fluid collections are identified. The ventricles are of normal size, shape, and morphology. The basilarcisterns are patent. No mass effect or midline shift is seen. The lacey-whitematter differentiation is normal. The visualized portions of the orbits, paranasal sinuses, and mastoids appear normal. No acute fracture is identified. No soft tissue abnormalities are identified in the neck. Milddegenerative disc and joint disease is noted in the cervical spine. Angiographic findings: Neck: There is atherosclerotic disease of the aortic arch. The configurationof the brachiocephalic vessels is typical. The innominate artery and both subclavian arteries appear normal. The right common and internal carotid arteries as well as the right carotid bifurcation appear patent. Theleft common and internal carotid arteries as well as the left carotid bifurcation appear normal. The cervical vertebral arteries are patent. Head: The distal internal carotid arteries are patent. The anterior and middle cerebral arteries are patent. The distal vertebral arteries are patent. The basilar artery and posterior cerebral arteries are patent. No aneurysms, vascular occlusions, or intracranial stenoses are identified. IMPRESSION: 1. No acute intracranial hemorrhage. 2. No large arterial occlusions or significant stenoses identified inthe head or neck. This report was electronically signed by TOBIN MARTINEZ M.D. on 05/28/2020 7:38 AM . Krish Stiles MD CT ORDERABLES * CREATININE - POCT INTERFACED (05/27/2020 11:42 PM CDT) Creatinine POCT 0.33 0.30 - 1.30 mg/dL 05/27/2020 11:44 PM CDT [facility] eGFR >60 >60 mL/min/1.7 3 m2 05/27/2020 11:44 PM CDT [facility] Blood BLOOD SPECIMEN / Unknown 05/27/2020 11:42 PM CDT 05/27/2020 11:44 PM CDT Provider Unknown LAB - POINT OF CARE ORDERABLES [address] [address], [facility] [phone] * INR WHOLE BLOOD - POINT OF CARE (IP) STROKE (05/27/2020 11:41 PM CDT) INR 0.9 0.9 - 1.2 05/27/2020 11:46 PM CDT [facility] Device [id number] 05/27/2020 11:46 PM CDT [facility] Teletype Installer ID [id number] 05/27/2020 11:46 PM CDT [facility] Blood BLOOD SPECIMEN / Unknown 05/27/2020 11:41 PM CDT 05/27/2020 11:46 PM CDT Provider Unknown LAB - POINT OF CARE ORDERABLES Performing Organization Address City/State/[facility] Co de Phone Number [address] [address], [facility] [phone] * CT BRAIN - Stroke (05/27/2020 11:39 PM CDT) Anatomical Region Laterality Modality Head Computed Tomogra phy 05/28/2020 7:31 AM CDT Impressions 05/28/2020 7:38 AM CDT IMPRESSION: 1. No acute intracranial hemorrhage. 2. No large arterial occlusions or significant stenoses identified in the head or neck. This report was electronically signed by TOBIN MARTINEZ M.D. on 05/28/2020 7:38 AM . Narrative 05/28/2020 7:38 AM CDT EXAMINATION: 1. Computed tomographic (CT) angiography of the head without and with contrast 2. CT angiography of the neck with contrast HISTORY: Code Stroke TECHNIQUE: CT of the head was performed without contrast according to standard protocol. Then CT angiography of the head and neck was obtained after the uneventful administration of 75 mL Isovue-370 intravenous contrast. Three dimensional postprocessing was performed by the technologist and sent to the workstation for review. FINDINGS: No prior study is available for comparison at the time of this dictation. Non-angiographic findings: No acute intra- or extra-axial fluid collections are identified. The ventricles are of normal size, shape, and morphology. The basilar cisterns are patent. No mass effect or midline shift is seen. The lacey-white matter differentiation is normal. The visualized portions of the orbits, paranasal sinuses, and mastoids appear normal. No acute fracture is identified. No soft tissue abnormalities are identified in the neck. Mild degenerative disc and joint disease is noted in the cervical spine. Angiographic findings: Neck: There is atherosclerotic disease of the aortic arch. The configuration of the brachiocephalic vessels is typical. The innominate artery and both subclavian arteries appear normal. The right common and internal carotid arteries as well as the right carotid bifurcation appear patent. The left common and internal carotid arteries as well as the left carotid bifurcation appear normal. The cervical vertebral arteries are patent. Head: The distal internal carotid arteries are patent. The anterior and middle cerebral arteries are patent. The distal vertebral arteries are patent. The basilar artery and posterior cerebral arteries are patent. No aneurysms, vascular occlusions, or intracranial stenoses are identified. Procedure Note Tobin Martinez MD - 05/28/2020 EXAMINATION: 1. Computed tomographic (CT) angiography of the head without and with contrast 2. CT angiography of the neck with contrast HISTORY: Code Stroke TECHNIQUE: CT of the head was performed without contrast according to standard protocol. Then CT angiography of the head and neck was obtained after the uneventful administration of 75 mL Isovue-370 intravenous contrast. Three dimensional postprocessing was performed by the technologist and sent to the workstation for review. FINDINGS: No prior study is available for comparison at the time of this dictation. Non-angiographic findings: No acute intra- or extra-axial fluid collections are identified. The ventricles are of normal size, shape, and morphology. The basilarcisterns are patent. No mass effect or midline shift is seen. The lacey-whitematter differentiation is normal. The visualized portions of the orbits, paranasal sinuses, and mastoids appear normal. No acute fracture is identified. No soft tissue abnormalities are identified in the neck. Milddegenerative disc and joint disease is noted in the cervical spine. Angiographic findings: Neck: There is atherosclerotic disease of the aortic arch. The configurationof the brachiocephalic vessels is typical. The innominate artery and both subclavian arteries appear normal. The right common and internal carotid arteries as well as the right carotid bifurcation appear patent. Theleft common and internal carotid arteries as well as the left carotid bifurcation appear normal. The cervical vertebral arteries are patent. Head: The distal internal carotid arteries are patent. The anterior and middle cerebral arteries are patent. The distal vertebral arteries are patent. The basilar artery and posterior cerebral arteries are patent. No aneurysms, vascular occlusions, or intracranial stenoses are identified. IMPRESSION: 1. No acute intracranial hemorrhage. 2. No large arterial occlusions or significant stenoses identified inthe head or neck. This report was electronically signed by TOBIN MARTINEZ M.D. on 05/28/2020 7:38 AM . Krish Stiles MD CT ORDERABLES Care Teams Nurse Anesthesia Program Director Relationship Specialty Start Date End Date Freddy Bolivar MD [address] [place] [address] PCP - General Family Medicine 06/01/20
--- OUTSIDE RECORDS SUMMARY | 2024-12-10 16:04 | XMS_ITS | Referral Summary ---
Author Organization [facility] Address [address] [place] [address] Care Team Providers Care [employer] Football Coach Name Role Phone Freddy Bolivar MD Primary Care Provider Source Comments [facility],non-owned Affiliates and Associated Physician Practices is amultiple site organization consisting of ambulatory clinics and hospital sitesin [place], [place], [place] and [place]. This disclosure is being madepursuant to the Care Everywhere program and may not contain all information available regarding this patient. Last updated 18.[facility] Allergies Active Allergy Reactions Criticality Noted Date Comments Codeine Other 05/28/2020 Nausea Medications * Be aware that medications may not be up to date on this document. Alwaysverify current medications with the patient. Medication Sig Dispensed Refills Start Date End Date Status atorvastatin (LIPITOR) 40 MG tablet Take 40 mg by mouth at bedtime Active lisinopril-hydroCHLOR Othiazide (PRINZIDE; ZESTORETIC) 20-12.5 MG tablet Take 1 tablet by mouth once daily Active aspirin (ASPIRIN) 81 MG chew tablet Take 1 tablet by mouth once daily 90 tablet 3 05/28/2020 Active Active Problems Problem Noted Date Diagnosed Date [...] Mass Index 24.05 05/28/2020 1:19 AM CDT Functional Status Functional Status Response Date of [...] person have difficulty concentrating/remembering/making decisions? No 05/28/2020 Plan of Treatment Not on file Advance Directives * Full Code (Latest Code Status on File) Date Activated Date Inactivated Comments 05/28/2020 12:03 AM 05/28/2020 5:31 PM * Full Code Date Activated Date Inactivated Comments 05/27/2020 11:40 PM 05/28/2020 12:02 AM Care Teams [employer] Football Coach Relationship Specialty Start Date End Date Freddy Bolivar MD [address] [place] [address] PCP - General Family Medicine 06/01/20
--- OUTSIDE RECORDS SUMMARY | 2024-12-10 16:04 | XMS_ITS | Clinical Summary ---
Author Organization [facility] Address [address] [place] [address] Care Team Providers Care Territory Sales Representative Name Role Phone Freddy Bolivar MD Primary Care Provider Source Comments [facility],non-owned Affiliates and Associated Physician Practices is amultiple site organization consisting of ambulatory clinics and hospital sitesin [place], [place], [place] and [place]. This disclosure is being madepursuant to the Care Everywhere program and may not contain all information available regarding this patient. Last updated 18.[facility] Allergies Active Allergy Reactions Criticality Noted Date [...] Mass Index 24.05 05/28/2020 1:19 AM CDT Plan of Treatment Health Maintenance Due Date Last Done Comments COLOGUARD (AGES 45-75) - COL ON CA SCREENING 1960 COLON MONITORING 1960 COLONOSCOPY - COLON CA SCREENING 1960 CT COLONOGRAPHY - COLON CA SCREENING 1960 Colorectal Cancer Screening 1960 FIT - COLON CA SCREENING 1960 FLEX SIG - COLON CA SCREENING 1960 MAMMOGRAM 1960 PAP SMEAR 1960 HIV SCREENING 1975 HEPATITIS C SCREENING 09/11/1978 DTAP/TDAP/TD VACCINES (1 - Tdap) 1979 PNEUMOCOCCAL VACCINE (1 of 2 - PCV) 1979 PNEUMOCOCCAL VACCINE 50+ (1 of 1 - PCV) 2010 ZOSTER VACCINE (1 of 2) 2010 COVID-19 VACCINE ( - 2023-2 5 season) 2024 INFLUENZA VACCINE (#1) 2024 DEPRESSION SCREENING 10/02/2024 Respiratory Syncytial Virus (RSV) Vaccine Pt: or over 60 yrs (1 - 1-dose 75+ series) 2035 HEPATITIS B VACCINE Aged Out No longe r eligible based on patient's age to complete this topic HIB VACCINE Aged Out No longer eligi ble based on patient's age to complete this topic HPV VACCINE Aged Out No longer eligi ble based on patient's age to complete this topic MENINGOCOCCAL (Group B) VACCINE Aged Out No longer eligible based on patient's age to complete this topic MENINGOCOCCAL VACCINE Aged Out No tali kailyn eligible based on patient's age to complete this topic Advance Directives * Full Code (Latest Code Status on File) Date Activated Date Inactivated Comments 05/28/2020 12:03 AM 05/28/2020 5:31 PM * Full Code Date Activated Date Inactivated Comments 05/27/2020 11:40 PM 05/28/2020 12:02 AM Care Teams Territory Sales Representative Relationship Specialty Start Date End Date Freddy Bolivar MD [address] [place] [address] PCP - General Family Medicine 06/01/20
== END 2024-12-10 14:13 | disposition home or self-care (01) ==
PROVIDERS: PCP Family Medicine; Visit Provider Family Medicine
DX: Z12.2 Encounter for screening for malignant neoplasm of respiratory organs (principal); Z87.891 Personal history of nicotine dependence
CPT/HCPCS: 71271